=== PATIENT | female | born 1980 | race American Indian/Alaskan Native ===

== ENCOUNTER 2020-10-03 15:42 | Emergency (ER) | payer OTHER ==
--- NOTE | 2020-10-03 16:11 | Event Note ---
ED Screening Note Date of service: 10/03/20 Time: 16:07 ED Screening Note: Patient complains of chest pain x2 days States cough and body aches Denies shortness of breath No past medical history per patient No leg pain or swelling per patient This initial assessment/diagnostic orders/clinical plan/treatment(s) is/are subject to change based on patients health status, clinical progression and re- assessment by fellow clinical providers in the ED. Further treatment and workup at subsequent clinical providers discretion. Patient/guardian urged not to elope from the ED as their condition may be serious if not clinically assessed and managed. Initial orders include: labs ekg cxr
[2020-10-03 16:27] LABS: Basophils # (Auto) 0.1 K/mm3 (0.0-0.1); Basophils % (Auto) 0.9 % (0.0-1.8); Eosinophils # (Auto) 0.3 K/mm3 (0.0-0.4); Eosinophils % (Auto) 2.9 % (0.0-4.3); Hematocrit 23.1 % (30.3-42.9); Hemoglobin 6.9 gm/dl (10.1-14.3); Lymphocytes # (Auto) 1.5 K/mm3 (1.2-5.4); Lymphocytes % (Auto) 16.6 % (13.4-35.0); Mean Corpuscular HGB Conc 30 % (30-34); Monocytes # (Auto) 0.8 K/mm3 (0.0-0.8); Monocytes % (Auto) 8.7 % (0.0-7.3); Platelet Count 451 K/mm3 (140-440); Red Blood Count 3.65 M/mm3 (3.65-5.03)
[2020-10-03 16:29] LABS: Mean Corpuscular Volume 63 fl (79-97); Red Cell Distribution Width 21.4 % (13.2-15.2)
[2020-10-03 16:51] LABS: Alanine Aminotransferase 7 units/L (7-56); Albumin 3.7 g/dL (3.9-5); Blood Urea Nitrogen 8 mg/dL (7-17); Calcium 8.5 mg/dL (8.4-10.2); Hemolysis Index 1
[2020-10-03 16:53] LABS: BUN/Creatinine Ratio 13
[2020-10-03] MEDS ORDERED: SODIUM CHLORIDE 0.9% 500 ML 500 ML IV ONE (18:04)
--- NOTE | 2020-10-03 18:09 | XRay Report ---
CHEST 1 VIEW 10/03/2020 5:43 PM INDICATION / CLINICAL INFORMATION: chest pain. COMPARISON: None available. FINDINGS: SUPPORT DEVICES: None. HEART / MEDIASTINUM: No significant abnormality. LUNGS / PLEURA: No significant pulmonary or pleural abnormality. No pneumothorax. ADDITIONAL FINDINGS: No significant additional findings. IMPRESSION: 1. No acute findings. Signer Name: Cornelio Collins MD Signed: 10/03/2020 6:05 PM Workstation Name: [id number]
--- NOTE | 2020-10-03 20:04 | Emergency Department Report ---
ED General Adult HPI - General Chief complaint: Chest Pain Stated complaint: CHEST PAIN, WEAKNESS, LIGHTHEADED Time Seen by Provider: 10/03/20 15:51 Source: patient Mode of arrival: Ambulatory Limitations: No Limitations - History of Present Illness Initial comments: 39-year-old female, history of anemia, presents to ED with 2-day history of not feeling very well. Patient reports generalized weakness, decreased appetite, sore throat, headache, mild cough, occasional chest pain. Patient denies fever, vomiting, diarrhea, shortness of breath. Patient denies any known contact with the 1 who is tested positive for COVID-19. 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 Patient has a history of anemia, believes her symptoms could possibly be related to low hemoglobin. Patient reports she has received transfusions in the past. Patient reports history of heavy menstrual periods. -: days(s) (2) Severity scale (0 -10): 0 Improves with: none Worsens with: none Associated Symptoms: chest pain, cough, headaches, loss of appetite, malaise, weakness. denies: fever/chills, nausea/vomiting, shortness of breath - Related Data Previous Rx's Medication Instructions Recorded Last Taken Type Ferrous Sulfate [Ferrous Sulfate 324 mg PO TID #90 tablet. 10/04/20 Unknown Rx 324 MG] Allergies Allergy/AdvReac Type Severity Reaction Status Date / Time shellfish derived Allergy Anaphylaxis Verified 10/03/20 15:45 ED Review of Systems ROS: Stated complaint: CHEST PAIN, WEAKNESS, LIGHTHEADED Other details as noted in HPI Comment: All other systems reviewed and negative Constitutional: denies: chills, fever ENT: throat pain Respiratory: cough. denies: shortness of breath Cardiovascular: chest pain Gastrointestinal: denies: abdominal pain, nausea, vomiting, diarrhea Neurological: headache ED Past Medical Hx - Past Medical History Previous Medical History?: Yes Additional medical history: Anemia - Surgical History Past Surgical History?: Yes Hx Cholecystectomy: Yes Additional Surgical History: Gastric sleeve - Social History Smoking Status: Current Every Day Smoker Substance Use Type: Alcohol, Marijuana - Medications Home Medications: Home Medications Medication Instructions Recorded Confirmed Last Taken Type Ferrous Sulfate [Ferrous Sulfate 324 mg PO TID #90 tablet. 10/04/20 Unknown Rx 324 MG] ED Physical Exam - General Limitations: No Limitations General appearance: alert, in no apparent distress - Head Head exam: Present: atraumatic, normocephalic - Eye Eye exam: Present: normal appearance, EOMI - ENT ENT exam: Present: mucous membranes moist - Neck Neck exam: Present: normal inspection - Respiratory Respiratory exam: Present: normal lung sounds bilaterally. Absent: respiratory distress - Cardiovascular Cardiovascular Exam: Present: regular rate, normal rhythm - GI/Abdominal GI/Abdominal exam: Present: soft. Absent: distended, tenderness - Extremities Exam Extremities exam: Present: normal inspection - Neurological Exam Neurological exam: Present: alert, oriented X3 - Psychiatric Psychiatric exam: Present: normal affect, normal mood - Skin Skin exam: Present: warm, dry, intact, normal color ED Course Vital Signs 10/03/20 10/03/20 10/03/20 15:47 18:20 18:30 Temperature 98.6 F Pulse Rate 96 H 60 Respiratory 18 8 L Rate Blood Pressure 146/51 O2 Sat by Pulse 100 99 100 Oximetry 10/03/20 10/03/20 10/03/20 18:40 18:46 19:00 Temperature Pulse Rate 63 57 L Respiratory 8 L 19 19 Rate Blood Pressure 123/63 121/61 O2 Sat by Pulse 100 100 100 Oximetry 10/03/20 10/03/20 10/03/20 19:16 19:30 19:46 Temperature Pulse Rate 55 L 65 59 L Respiratory 15 16 22 Rate Blood Pressure 115/61 115/61 107/39 O2 Sat by Pulse 100 100 100 Oximetry 10/03/20 10/03/20 10/03/20 20:00 20:16 21:47 Temperature Pulse Rate 65 65 68 Respiratory 15 19 Rate Blood Pressure 107/39 113/53 O2 Sat by Pulse 100 100 Oximetry 10/03/20 10/03/20 10/03/20 22:00 22:16 22:30 Temperature Pulse Rate 60 62 57 L Respiratory 11 L 14 16 Rate Blood Pressure 108/43 113/53 113/53 O2 Sat by Pulse 100 100 100 Oximetry 10/03/20 10/03/20 10/03/20 22:40 22:41 22:50 Temperature 98.2 F Pulse Rate 64 61 55 L Respiratory 9 L 16 13 Rate Blood Pressure 115/69 115/69 112/53 O2 Sat by Pulse 100 99 100 Oximetry 10/03/20 10/03/20 10/03/20 22:56 23:00 23:16 Temperature 98.8 F Pulse Rate 70 60 59 L Respiratory 16 15 18 Rate Blood Pressure 112/53 112/53 110/65 O2 Sat by Pulse 100 100 100 Oximetry 10/03/20 10/03/20 10/03/20 23:26 23:28 23:30 Temperature 99.0 F Pulse Rate 57 L 70 79 Respiratory 16 13 18 Rate Blood Pressure 112/74 112/74 112/74 O2 Sat by Pulse 100 98 100 Oximetry 10/03/20 10/03/20 10/03/20 23:39 23:45 23:46 Temperature Pulse Rate 64 81 66 Respiratory 9 L 20 15 Rate Blood Pressure 110/40 O2 Sat by Pulse 100 99 100 Oximetry 10/03/20 10/04/20 10/04/20 23:56 00:00 00:16 Temperature 97.9 F Pulse Rate 77 70 71 Respiratory 16 12 21 Rate Blood Pressure 110/40 110/40 114/51 O2 Sat by Pulse 100 100 98 Oximetry 10/04/20 10/04/20 10/04/20 00:26 00:30 00:40 Temperature 97.7 F Pulse Rate 64 63 63 Respiratory 16 13 17 Rate Blood Pressure 116/59 114/52 116/59 O2 Sat by Pulse 98 100 99 Oximetry 10/04/20 10/04/20 10/04/20 00:50 00:56 01:00 Temperature 98.2 F Pulse Rate 55 L 68 57 L Respiratory 21 18 21 Rate Blood Pressure 115/50 112/58 116/59 O2 Sat by Pulse 99 98 99 Oximetry 10/04/20 10/04/20 10/04/20 01:10 01:20 01:26 Temperature 98.2 F Pulse Rate 68 60 68 Respiratory 21 19 16 Rate Blood Pressure 119/48 112/58 O2 Sat by Pulse 99 98 98 Oximetry ED Medical Decision Making - Lab Data Result diagrams: 10/03/20 16:17 10/03/20 16:17 - EKG Data -: EKG Interpreted by Me EKG shows normal: sinus rhythm, axis, intervals, QRS complexes, ST-T waves Rate: normal - EKG Data Interpretation: no acute changes - Radiology Data Radiology results: report reviewed, image reviewed - Medical Decision Making 39-year-old female presents to ED with complaint of generalized weakness, decreased appetite, sore throat, headache, mild cough, occasional chest pain. Patient has history of anemia and is concerned that her hemoglobin may be low. Hemoglobin is currently 6.9. Symptoms may be secondary to her anemia. There is also concern that patient could have COVID-19. 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 Patient advised to obtain outpatient COVID-19 testing. Patient transfused 1 unit of RBCs here in the ED. vitals are remained normal and stable. Will discharge home at this time. Outpatient follow-up advised. Return precautions given. - Differential Diagnosis anemia, COVID-19 Critical care attestation.: If time is entered above; I have spent that time in minutes in the direct care of this critically ill patient, excluding procedure time. ED Disposition Clinical Impression: Symptomatic anemia Disposition: TO HOME OR SELFCARE Is pt being admited?: No Condition: Stable Instructions: COVID-19, Blood Transfusion, Adult, Care After Additional Instructions: Outpatient COVID-19 testing is recommended. Quarantine as necessary. Prescriptions: Ferrous Sulfate [Ferrous Sulfate 324 MG] 324 mg PO TID #90 tablet. Referrals: PRIMARY CAREMD [Primary Care Provider] - 3-5 Days PIO ALAS MD [Staff Physician] - 3-5 Days [facility] [Provider Group] - 3-5 Days [facility] [Outside] - 3-5 Days Time of Disposition: 01:42
[2020-10-03] MEDS ORDERED: SODIUM CHLORIDE 0.9% 500 ML 500 ML ONE (22:16)
[2020-10-03] MEDS ORDERED: ONDANSETRON 4 MG/2 ML INJ IV ONE (23:30)
[2020-10-04 02:47] LABS: Hematocrit 23.8 % (30.3-42.9); Hemoglobin 7.3 gm/dl (10.1-14.3)
[2020-10-04 03:28] VITALS: BP 115/50
== END 2020-10-04 02:17 | disposition home or self-care (01) ==
LOC: ED 15:42
DX: D64.89 Other specified anemias (principal); F17.200 Nicotine dependence, unspecified, uncomplicated; F12.10 Cannabis abuse, uncomplicated; Z90.49 Acquired absence of other specified parts of digestive tract; Z98.890 Other specified postprocedural states; Z79.899 Other long term (current) drug therapy; Z91.013 Allergy to seafood
CPT/HCPCS: 36415; 36430; 71045; 80053; 84484; 84703; 85014; 85018; 85025; 86850; 86900; 86901; 86920; 93005; 96361; 96374; 99284; J2405; J7040; P9016

== ENCOUNTER 2021-04-24 13:52 | Emergency (ER) | payer OTHER ==
[2021-04-24] MEDS ORDERED: TETANUS,DIPH,PERTUSS(ACELL) VACCINE 0.5 ML SYRINGE IM ONE (14:44)
--- NOTE | 2021-04-24 14:52 | Emergency Department Report ---
ED Extremity Problem HPI - General Chief complaint: Extremity Injury, Lower Stated complaint: LEFT FOOT PAIN Time Seen by Provider: 04/24/21 14:30 Source: patient Mode of arrival: Ambulatory Limitations: No Limitations - History of Present Illness Initial comments: Patient is a 40-year-old female presents emergency room complaints of left foot pain that began 3 days ago. She states that approximately a year and a half ago she believes that she may be stepped on a nail, she states that she has always had a callus formed to the left plantar foot. He states over the last 3 days it has become more painful where this callus is and it began having swelling present. She denies any new fall or injury or stepping on anything that she is aware of recently. She denies any fever, chills, drainage, nausea, vomiting, numbness, weakness. Past medical history of anemia and gastric sleeve. No allergies to medications. Last menstrual cycle 2 weeks ago. Patient states that she has an upcoming appointment with a rugby union footballer on 04/26/2021. Severity scale (0 -10): 9 - Related Data Previous Rx's Medication Instructions Recorded Last Taken Type Ferrous Sulfate [Ferrous Sulfate 324 mg PO TID #90 tablet. 10/04/20 Unknown Rx 324 MG] Sulfamethoxazole/Trimethoprim 1 each PO BID 7 Days #14 tablet 04/24/21 Unknown Rx [Bactrim DS TAB] traMADoL [Ultram 50 MG tab] 50 mg PO Q6HR PRN #12 tablet 04/24/21 Unknown Rx Allergies Allergy/AdvReac Type Severity Reaction Status Date / Time shellfish derived Allergy Anaphylaxis Verified 10/03/20 15:45 ED Review of Systems ROS: Stated complaint: LEFT FOOT PAIN Other details as noted in HPI Comment: All other systems reviewed and negative ED Past Medical Hx - Past Medical History Previous Medical History?: Yes Additional medical history: Anemia - Surgical History Past Surgical History?: Yes Hx Cholecystectomy: Yes Additional Surgical History: Gastric sleeve - Social History Smoking Status: Current Every Day Smoker Substance Use Type: Alcohol, Marijuana - Medications Home Medications: Home Medications Medication Instructions Recorded Confirmed Last Taken Type Ferrous Sulfate [Ferrous Sulfate 324 mg PO TID #90 tablet. 10/04/20 Unknown Rx 324 MG] Sulfamethoxazole/Trimethoprim 1 each PO BID 7 Days #14 tablet 04/24/21 Unknown Rx [Bactrim DS TAB] traMADoL [Ultram 50 MG tab] 50 mg PO Q6HR PRN #12 tablet 04/24/21 Unknown Rx ED Physical Exam - General Limitations: No Limitations General appearance: alert, in no apparent distress - Head Head exam: Present: atraumatic, normocephalic - Eye Eye exam: Present: normal appearance - ENT ENT exam: Present: mucous membranes moist - Neurological Exam Neurological exam: Present: alert, oriented X3 - Psychiatric Psychiatric exam: Present: normal affect, normal mood - Skin Skin exam: Present: warm, dry, other (there is a 1 cm superficial opening present to the left plantar foot, there is associated mild surrounding edema, no drainage or fluctuance, no necrosis or crepitus, neurovascularly intact) ED Course Vital Signs 04/24/21 04/24/21 14:20 16:23 Temperature 99 F 98.4 F Pulse Rate 87 83 Respiratory 18 14 Rate Blood Pressure 170/83 137/87 [Right] O2 Sat by Pulse 100 99 Oximetry ED Medical Decision Making - Lab Data Vital Signs 04/24/21 04/24/21 14:20 16:23 Temperature 99 F 98.4 F Pulse Rate 87 83 Respiratory 18 14 Rate Blood Pressure 170/83 137/87 [Right] O2 Sat by Pulse 100 99 Oximetry - Radiology Data Radiology results: report reviewed Ordering Physician: MASHA SÁNCHEZ Date of Service: 04/24/21 Procedure(s): XR foot 3+V LT Accession Number(s): [id number] cc: MASHA SÁNCHEZ Fluoro Time In Minutes: XR foot 3+V LT INDICATION / CLINICAL INFORMATION: stepped on object a year ago, now pain/swelling COMPARISON: None available. FINDINGS: BONES / JOINT(S): No acute fracture or malalignment. No aggressive cortical destructive changes. SOFT TISSUES: Small lucency within the soft tissues at the plantar lateral aspect of the left midfoot with surrounding soft tissue attenuation. Findings could reflect soft tissue infection. No radiopaque foreign body. Signer Name: Torito Gimenez MD Signed: 04/24/2021 3:25 PM Workstation Name: [id number] Transcribed By: BRUCE Dictated By: TORITO GIMENEZ MD Electronically Authenticated By: TORITO GIMENEZ MD Signed Date/Time: 04/24/21 1525 DD/ 1523 TD/TT: - Medical Decision Making Patient is a 40-year-old female presents emergency room complaints of left foot pain that began 3 days ago. She states that approximately a year and a half ago she believes that she may be stepped on a nail, she states that she has always had a callus formed to the left plantar foot. He states over the last 3 days it has become more painful where this callus is and it began having swelling present. She denies any new fall or injury or stepping on anything that she is aware of recently. She denies any fever, chills, drainage, nausea, vomiting, numbness, weakness. Past medical history of anemia and gastric sleeve. No allergies to medications. Last menstrual cycle 2 weeks ago. Patient states that she has an upcoming appointment with a rugby union footballer on 04/26/2021. Vitals are stable. On exam:there is a 1 cm superficial opening present to the left plantar foot, there is associated mild surrounding edema, no drainage or fluctuance, no necrosis or crepitus, neurovascularly intact. x-ray left foot: BONES / JOINT(S): No acute fracture or malalignment. No aggressive cortical destructive changes. SOFT TISSUES: Small lucency within the soft tissues at the plantar lateral aspect of the left midfoot with surrounding soft tissue attenuation. Findings could reflect soft tissue infection. No radiopaque foreign body. Findings likely consistent with cellulitis, there is no signs of abscess at this time. Patient be placed on medication. Discussed the importance of keeping her appointment with her rugby union footballer. Advised patient Please take medication as prescribed. Please keep area clean, dry, covered. Wash with antibacterial soap and water pat dry. No hot tub, no pool. Follow-up with a primary care doctor. Please keep your appointment with a rugby union footballer. Return to emergency room for any new or worsening symptoms. Critical care attestation.: If time is entered above; I have spent that time in minutes in the direct care of this critically ill patient, excluding procedure time. ED Disposition Clinical Impression: Cellulitis Qualifiers: Site of cellulitis: extremity Site of cellulitis of extremity: lower extremity Laterality: left Qualified Code(s): L03.116 - Cellulitis of left lower limb Disposition: 01 HOME / SELF CARE / HOMELESS Is pt being admited?: No Does the pt Need Aspirin: No Condition: Stable Instructions: Cellulitis, Adult Additional Instructions: Please take medication as prescribed. Please keep area clean, dry, covered. Wash with antibacterial soap and water pat dry. No hot tub, no pool. Follow-up with a primary care doctor. Please keep your appointment with a rugby union footballer. Return to emergency room for any new or worsening symptoms. Prescriptions: Sulfamethoxazole/Trimethoprim [Bactrim DS TAB] 1 each PO BID 7 Days #14 tablet traMADoL [Ultram 50 MG tab] 50 mg PO Q6HR PRN #12 tablet PRN Reason: Pain Referrals: your, rugby union footballer [Other] - 2-3 Days your, primary care doctor [Other] - 2-3 Days Time of Disposition: 15:49 Print Language: TELUGU
--- NOTE | 2021-04-24 15:29 | XRay Report ---
XR foot 3+V LT INDICATION / CLINICAL INFORMATION: stepped on object a year ago, now pain/swelling COMPARISON: None available. FINDINGS: BONES / JOINT(S): No acute fracture or malalignment. No aggressive cortical destructive changes. SOFT TISSUES: Small lucency within the soft tissues at the plantar lateral aspect of the left midfoot with surrounding soft tissue attenuation. Findings could reflect soft tissue infection. No radiopaqu e foreign body. Signer Name: Froy Valiente MD Signed: 04/24/2021 3:25 PM Workstation Name: [id number]
[2021-04-24 16:23] VITALS: BP 137/87
== END 2021-04-24 17:33 | disposition home or self-care (01) ==
LOC: ED 13:52
DX: L03.116 Cellulitis of left lower limb (principal); F17.200 Nicotine dependence, unspecified, uncomplicated; F10.20 Alcohol dependence, uncomplicated; F12.90 Cannabis use, unspecified, uncomplicated; Z90.49 Acquired absence of other specified parts of digestive tract; Z91.013 Allergy to seafood
CPT/HCPCS: 90471; 90715; 99283

== ENCOUNTER 2022-03-31 11:17 | Emergency (ER) | payer OTHER ==
[2022-03-31] MEDS ORDERED: IBUPROFEN 800 MG TAB PO ONE (21:51)
--- NOTE | 2022-03-31 21:51 | XRay Report ---
CHEST 2 VIEWS INDICATION / CLINICAL INFORMATION: chest pain. COMPARISON: None available. FINDINGS: SUPPORT DEVICES: None. HEART / MEDIASTINUM: No significant abnormality. LUNGS / PLEURA: No significant pulmonary or pleural abnormality. No pneumothorax. ADDITIONAL FINDINGS: No significant additional findings. IMPRESSION: 1. No acute findings. Signer Name: Kavon Olivas MD Signed: 03/31/2022 9:47 PM Workstation Name: [id number]
--- NOTE | 2022-03-31 21:54 | Emergency Department Report ---
ED Chest Pain HPI - General Chief Complaint: Chest Pain Stated Complaint: CHEST PAIN, DIZZINESS Time Seen by Provider: 03/31/22 21:15 Source: patient Mode of arrival: Ambulatory Limitations: No Limitations - History of Present Illness Initial Comments: Is a 41-year-old female who presents for chest pain described at 4/10 pressure intermittent dizziness for the past 3 days. Patient denies fevers coughs or chills. No nausea or vomiting. Pain is exacerbated by activity. Standing pain is relieved by nothing tried. Patient denies shortness of breath there is no no wheezing no cough no stridor. Patient denies history of hypertension or coronary artery disease. MD Complaint: chest pain - Related Data Previous Rx's Medication Instructions Recorded Last Taken Type Ferrous Sulfate [Ferrous Sulfate 324 mg PO TID #90 tablet. 10/04/20 Unknown Rx 324 MG] Sulfamethoxazole/Trimethoprim 1 each PO BID 7 Days #14 tablet 04/24/21 Unknown Rx [Bactrim DS TAB] traMADoL [Ultram 50 MG tab] 50 mg PO Q6HR PRN #12 tablet 04/24/21 Unknown Rx Naproxen 500 mg PO BID PRN #30 tab 04/01/22 Unknown Rx Allergies Allergy/AdvReac Type Severity Reaction Status Date / Time shellfish derived Allergy Anaphylaxis Verified 03/31/22 11:54 Heart Score - HEART Score History: Slightly suspicious EKG: Normal Age: < 45 Risk factors: No known risk factors Troponin: < normal limit HEART Score: 0 - EKG Read Time Time EKG Completed: 11:54 EKG Read Time: 11:56 ED Review of Systems ROS: Stated complaint: CHEST PAIN, DIZZINESS Other details as noted in HPI Constitutional: denies: chills, fever Eyes: denies: eye pain, eye discharge, vision change ENT: denies: ear pain, throat pain Respiratory: denies: cough, shortness of breath, wheezing Cardiovascular: chest pain. denies: palpitations, orthopnea, syncope Endocrine: no symptoms reported Gastrointestinal: denies: abdominal pain, nausea, vomiting, diarrhea Genitourinary: denies: urgency, dysuria, discharge Musculoskeletal: denies: back pain, joint swelling, arthralgia Skin: denies: rash, lesions Neurological: vertigo. denies: headache, weakness, numbness, paresthesias, confusion Psychiatric: as per HPI Hematological/Lymphatic: denies: easy bleeding, easy bruising ED Past Medical Hx - Past Medical History Additional medical history: Anemia - Surgical History Hx Cholecystectomy: Yes Additional Surgical History: Gastric sleeve - Social History Smoking Status: Current Every Day Smoker Substance Use Type: Alcohol, Marijuana - Medications Home Medications: Home Medications Medication Instructions Recorded Confirmed Last Taken Type Ferrous Sulfate [Ferrous Sulfate 324 mg PO TID #90 tablet. 10/04/20 Unknown Rx 324 MG] Sulfamethoxazole/Trimethoprim 1 each PO BID 7 Days #14 tablet 04/24/21 Unknown Rx [Bactrim DS TAB] traMADoL [Ultram 50 MG tab] 50 mg PO Q6HR PRN #12 tablet 04/24/21 Unknown Rx Naproxen 500 mg PO BID PRN #30 tab 04/01/22 Unknown Rx ED Physical Exam - General Limitations: No Limitations General appearance: alert, in no apparent distress - Head Head exam: Present: normocephalic, normal inspection - Eye Eye exam: Present: PERRL, EOMI, conjunctival injection. Absent: nystagmus Pupils: Present: normal accommodation - ENT ENT exam: Present: normal orophraynx, mucous membranes moist - Neck Neck exam: Present: normal inspection, full ROM. Absent: tenderness, lymphadenopathy, thyromegaly - Respiratory Respiratory exam: Present: normal lung sounds bilaterally, chest wall tenderness (Anterior chest wall tenderness to deep palpation no crepitus no ecchymosis no swelling no step-off.). Absent: respiratory distress, wheezes, rales, rhonchi, stridor, prolonged expiratory - Cardiovascular Cardiovascular Exam: Present: regular rate, normal rhythm, normal heart sounds. Absent: systolic murmur, diastolic murmur, rubs, gallop - GI/Abdominal GI/Abdominal exam: Present: soft, normal bowel sounds. Absent: distended, tenderness, guarding, rebound, rigid, bruit, hernia - Rectal Rectal exam: Present: deferred - Extremities Exam Extremities exam: Present: normal inspection, full ROM, normal capillary refill. Absent: pedal edema - Back Exam Back exam: Present: normal inspection, full ROM. Absent: CVA tenderness (R), CVA tenderness (L) - Neurological Exam Neurological exam: Present: alert, oriented X3, CN II-XII intact, normal gait - Expanded Neurological Exam Expanded Patient oriented to: Present: person, place, time Speech: Present: fluid speech Cranial nerves: EOM's Intact: Normal Motor strength exam: RUE: 5, LUE: 5, RLE: 5, LLE: 5 Best Eye Response ([place]): (4) open spontaneously Best Motor Response ([place]): (6) obeys commands Best Verbal Response ([place]): (5) oriented [place] Total: 15 - Psychiatric Psychiatric exam: Present: normal affect, normal mood - Skin Skin exam: Present: warm, dry, intact, normal color. Absent: rash ED Course Vital Signs 03/31/22 11:51 Temperature 98.4 F Pulse Rate 74 Respiratory 18 Rate Blood Pressure 131/68 [Left] O2 Sat by Pulse 100 Oximetry IAN score - Ian Score Age > 65: (0) No Aspirin use within the Past 7 Days: (0) No 3 or more CAD Risk Factors: (0) No 2 or more Angina events in past 24 hrs: (0) No Known CAD with more than 50% Stenosis: (0) No Elevated Cardiac Markers: (0) No ST Deviation Greater than 0.5mm: (0) No IAN Score: 0 ED Medical Decision Making - Lab Data Result diagrams: 03/31/22 21:55 03/31/22 21:55 Labs 03/31/22 03/31/22 03/31/22 21:55 21:55 23:09 WBC 10.1 RBC 3.93 Hgb 10.4 Hct 32.9 MCV 84 MCH 27 L MCHC 32 RDW 17.1 H Plt Count 403 Lymph % (Auto) 23.4 [place] % (Auto) 8.4 H Eos % (Auto) 3.9 Baso % (Auto) 0.7 Lymph # (Auto) 2.4 [place] # (Auto) 0.8 Eos # (Auto) 0.4 Baso # (Auto) 0.1 Seg Neutrophils % 63.6 Seg Neutrophils # 6.4 Sodium 140 Potassium 3.9 Chloride 103.6 Carbon Dioxide 24 Anion Gap 16 BUN 11 Creatinine 0.6 Estimated GFR > 60 BUN/Creatinine Ratio 18 Glucose 78 Calcium 9.0 Total Bilirubin 0.20 AST 15 ALT 7 Alkaline Phosphatase 48 Troponin T < 0.010 < 0.010 Total Protein 7.1 Albumin 4.3 Albumin/Globulin Ratio 1.5 - EKG Data EKG shows normal: sinus rhythm, axis, intervals, QRS complexes, ST-T waves Rate: normal - EKG Data Interpretation: normal EKG (Normal sinus rhythm probable left atrial enlargement no ST elevated [place] interpreted by ED attending) - Radiology Data Radiology results: report reviewed, image reviewed CHEST 2 VIEWS INDICATION / CLINICAL INFORMATION: chest pain. COMPARISON: None available. FINDINGS: SUPPORT DEVICES: None. HEART / MEDIASTINUM: No significant abnormality. LUNGS / PLEURA: No significant pulmonary or pleural abnormality. No pneumothorax. ADDITIONAL FINDINGS: No significant additional findings. IMPRESSION: 1. No acute findings. Signer Name: Kavon Cornejo MD Signed: 03/31/2022 9:47 PM Workstation Name: [id number] Transcribed By: CW Dictated By: FABI CORNEJO MD Electronically Authenticated By: FABI CORNEJO MD Signed Date/Time: 03/31/222146 DD/ 46 TD/TT: - Medical Decision Making Heart score is 0, EKG normal sinus rhythm no ST elevated [place], interpreted by ED attending, chest x-ray normal no infiltrates no opacities, troponin less than 0.01x2, lung sounds are clear throughout. No pedal edema. Symptoms are improved with medications given in ED plan DC to home, NSAIDs as needed pain, follow-up with primary care doctor in 2 to 3 days. Return to emergency department should symptoms worsen. Patient verbalized agreement and understanding with discharge plan patient DC'd home in stable condition at this time. Critical care attestation.: If time is entered above; I have spent that time in minutes in the direct care of this critically ill patient, excluding procedure time. ED Disposition Clinical Impression: Atypical chest pain Disposition: HOME / SELF CARE / HOMELESS Is pt being admited?: No Does the pt Need Aspirin: No Condition: Stable Instructions: Nonspecific Chest Pain, Adult Additional Instructions: Take medications as prescribed, follow-up with your doctor in 2 to 3 days. Return to emergency department should symptoms worsen. Prescriptions: Naproxen 500 mg PO BID PRN #30 tab PRN Reason: pain Referrals: ALICE ADAIR MD [Staff Physician] - 3-5 Days Forms: Work/School Release Form(ED) Time of Disposition: 00:25
[2022-03-31 22:07] LABS: Basophils # (Auto) 0.1 K/mm3 (0.0-0.1); Basophils % (Auto) 0.7 % (0.0-1.8); Eosinophils # (Auto) 0.4 K/mm3 (0.0-0.4); Eosinophils % (Auto) 3.9 % (0.0-4.3); Hematocrit 32.9 % (30.3-42.9); Hemoglobin 10.4 gm/dl (10.1-14.3); Lymphocytes # (Auto) 2.4 K/mm3 (1.2-5.4); Lymphocytes % (Auto) 23.4 % (13.4-35.0); Mean Corpuscular HGB Conc 32 % (30-34); Mean Corpuscular Volume 84 fl (79-97); Monocytes # (Auto) 0.8 K/mm3 (0.0-0.8); Monocytes % (Auto) 8.4 % (0.0-7.3); Platelet Count 403 K/mm3 (140-440); Red Blood Count 3.93 M/mm3 (3.65-5.03); Red Cell Distribution Width 17.1 % (13.2-15.2)
[2022-03-31 22:34] LABS: Alanine Aminotransferase 7 units/L (7-56); Albumin 4.3 g/dL (3.9-5); Blood Urea Nitrogen 11 mg/dL (7-17); Hemolysis Index 5
[2022-03-31 22:52] LABS: BUN/Creatinine Ratio 18
[2022-04-01 01:39] VITALS: BP 136/74
--- NOTE | 2022-04-04 09:32 | Electrocardiograph Report ---
[facility] Test Date: 2022-03-31 Test Time: 11:54:19 Pat Name: DIONNE NARANJO Department: Room: Gender: F Development Administrator: ER : 1980 Requested By: DARIAN MONTOYA Order Number: [id number] Reading MD: Carlos Feng Measurements Intervals [place] Rate: 60 P: 78 AK: 157 QRS: 70 QRSD: 88 T: 51 QT: 424 QTc: 425 Interpretive Statements Sinus arrhythmia Probable left atrial enlargement No previous ECG available for comparison Electronically Signed On 04-04-2022 9:32:28 EDT by Carlos Feng
== END 2022-04-01 00:52 | disposition home or self-care (01) ==
LOC: ED 11:17
DX: R07.89 Other chest pain (principal); R42 Dizziness and giddiness; F17.200 Nicotine dependence, unspecified, uncomplicated; F12.90 Cannabis use, unspecified, uncomplicated; Z72.89 Other problems related to lifestyle; Z91.013 Allergy to seafood; Z79.899 Other long term (current) drug therapy
CPT/HCPCS: 36415; 71046; 80053; 84484; 85025; 93005; 99283; 99284